=== PATIENT | male | born 1935 | race Caucasian/White ===

== ENCOUNTER 2016-12-08 13:08 | Emergency (ER) | payer MEDICARE ==
[~2016-12-08] VITALS: Ht 190.5 cm; Wt 113.1 kg
[2016-12-08 13:44] LABS: BASOPHILS % (AUTO) 1 % (0-2); EOSINOPHILS # (AUTO) 0.2 10^3uL; EOSINOPHILS % (AUTO) 3 % (0-4); MEAN CORPUSCULAR HEMOGLOBIN 29.2 PG (26.0-34.0); MEAN CORPUSCULAR HGB CONC 35.5 g/dL (31.0-37.0); MEAN CORPUSCULAR VOLUME 82 FL (80-100); MEAN PLATELET VOLUME 10.4 FL (6.0-9.5); MONOCYTES # (AUTO) 0.7 X10^3; MONOCYTES % (AUTO) 10 % (3-11); NEUTROPHILS # (AUTO) 4.8 X10^3; NEUTROPHILS % (AUTO) 72 % (51-67); PLATELET COUNT 118 10^3uL (150-450); WHITE BLOOD COUNT 6.71 10^3uL (4.0-11.0)
[2016-12-08] MEDS ORDERED: HYDROmorphone 1 MG/ML (DILAUDID) SYRINGE IV ONE ×2 (13:45→15:50)
[2016-12-08] MEDS ORDERED: SODIUM CHLORIDE FLUSH 10 ML SYR IV PRN (13:45)
[2016-12-08] MEDS ORDERED: ONDANSETRON 2 MG/ML (Z0FRAN) 2 ML VIAL IV ONE (13:45)
[2016-12-08] MEDS: SODIUM CHLORIDE FLUSH 3 ML SYR IV PRN ×4 (13:50→16:19)
[2016-12-08 13:59] LABS: ALBUMIN 4.6 g/dL (3.4-5.0); ANION GAP 14.2 MEQ/L (3-15); CALCULATED IONIZED CALCIUM 4.1 mg/dL (3.8-4.6); MAGNESIUM* 1.8 mg/dL (1.6-2.3); TOTAL PROTEIN 7.5 g/dL (6.4-8.5)
--- NOTE | 2016-12-08 14:12 | NUR ---
Patient still uncomfortable but also slightly drowsy. SpO2 drops into upper 80s at times - Dr. Diallo notified.
[2016-12-08] MEDS ORDERED: HEPARIN 1000 UNIT/ML 2 ML VIAL IV ONE (16:00)
--- NOTE | 2016-12-08 16:35 | NUR ---
Patient still somewhat drowsy. Denies pain in Lt thigh but says Lt ankle is starting to bother him again. in room and as visited with Dr. Diallo about results of tests and proposed Plan of Care.
[2016-12-08 18:29] VITALS: BP 184/94
== END 2016-12-08 17:34 | disposition short-term general hospital (02) ==
LOC: EDUNIT# 13:08 → ED 13:10
DX: I74.8 Embolism and thrombosis of other arteries (principal); I75.021 Atheroembolism of right lower extremity; I72.4 Aneurysm of artery of lower extremity; F17.210 Nicotine dependence, cigarettes, uncomplicated
CPT/HCPCS: 36415; 80053; 83735; 85025; 85379; 85610; 86140; 93005; 93926; 96374; 96375; 96376; 99285; J1170; J1644; J2405; 93010; 99284

== ENCOUNTER → 2016-12-08 | Outpatient (CLI) | payer MEDICARE | LOC: EMS 17:35 | PROVIDERS: ATTEND Emergency Medicine | DX: I74.3 Embolism and thrombosis of arteries of the lower extremities (principal) ==